=== PATIENT | male | born 1935 | race Caucasian/White ===

== ENCOUNTER 2019-12-23 11:12 | Outpatient (REF) | payer MEDICARE, SELFPAY ==
[2019-12-23 12:44] LABS: Cholesterol 160 mg/dL; HDL Cholesterol 63 mg/dL; LDL Cholesterol Calculated 74 mg/dl; Triglycerides 115 mg/dL
== END 2019-12-23 11:13 | disposition home or self-care (01) ==
LOC: HO.LAB 11:12
PROVIDERS: PCP Internal Medicine; Visit Provider Internal Medicine
DX: E78.5 Hyperlipidemia, unspecified (principal)
CPT/HCPCS: 80061

== ENCOUNTER 2020-02-14 15:14 | Emergency (ER) | payer MEDICARE, SELFPAY ==
[2020-02-14 15:27] VITALS: BP 132/56; PULSE 100; RESP 18; TEMP 37; O2SAT 98; BMI 21.7
--- NOTE | 2020-02-14 15:27 | XR_ITS ---
EXAMINATION: XR CHEST CLINICAL INFORMATION: Dizziness. COMPARISON: Chest x-rays of 08/08/2018 and multiple previous chest x-rays dated back to 08/29/2014. CT chest 05/12/2018. Selected images of the abdomen and pelvic CT of 08/08/2018. TECHNIQUE: Frontal view of the chest was obtained. FINDINGS: The patient is rotated to the left. Left lung volume loss with mediastinal shift to the left is a chronic stable finding. Mild chronic opacification is noted at the left lung base, likely related to pleural thickening. Multiple surgical clips are again in the left hilar region. No new airspace opacities are seen. No evidence of pulmonary edema or right pleural effusion. No pneumothorax. Cardiomediastinal silhouette is unchanged. Aortic arch calcifications. In the visualized upper abdomen bilateral nephrostomy tubes are partially seen. Healed left-sided rib fractures are redemonstrated. XR/XR chest 1V IMPRESSION: No convincing evidence of acute pulmonary process. Chronic stable findings of left lung volume loss and mediastinal shift to the left with mild pleural thickening in the left lower chest.
--- NOTE | 2020-02-14 15:27 | CT_ITS ---
EXAMINATION: CT HEAD WITHOUT CONTRAST CLINICAL INFORMATION: Dizziness COMPARISON: None TECHNIQUE: Contiguous axial imaging was performed from the skull base to vertex without intravenous administration of contrast. This CT examination was performed using dose optimization techniques as appropriate, variously including the following: *Automated exposure control *Adjustment of mA and/or kV according to patient size (this includes techniques or standardized protocols for targeted exams where dose is matched to indication/reason for exam; i.e. extremities or head) *Use of iterative reconstruction technique DLP: 736 mGy-cm FINDINGS: There is no evidence of acute intracranial hemorrhage or territorial infarction. No abnormal mass effect or midline shift is seen. Zapien to white matter differentiation is well preserved. No extra-axial fluid collections are identified. The lateral ventricles are symmetrical in size and configuration without enlargement. Mild periventricular hypodensity seen in both cerebral hemispheres suggestive of chronic small vessel ischemic changes. The osseous structures and soft tissues are normal. The mastoid air cells and visualized portions of the paranasal sinuses are well aerated. CT/CT head/brain wo con IMPRESSION: No acute intracranial process seen
--- NOTE | 2020-02-14 15:27 | ECG_ITS ---
Test Reason : DIZZINESS Blood Pressure : / mmHG Vent. Rate : 095 BPM Atrial Rate : 095 BPM P-R Int : 166 ms QRS Dur : 080 ms QT Int : 362 ms P-R-T Axes : 095 -14 -09 degrees QTc Int : 454 ms Normal sinus rhythm Moderate voltage criteria for LVH, may be normal variant Borderline ECG When compared with ECG of 20-AUG-2018 11:59, No significant change was found Referred By: Luca Tran Electronically Signed By:KATARZYNA JANE
[2020-02-14 16:07] LABS: Basophils Percent Auto 0.1 % (0-2); Eosinophils Absolute Auto 0.1 X10*3/uL (0.0-0.4); Eosinophils Percent Auto 0.7 % (0-4); Hematocrit 31.8 % (42-52); Hemoglobin 10.1 g/dl (14.0-18.0); Imm Gran Abs Auto 0.05 X10*3/uL (0.00-0.03); Imm Gran Pct Auto 0.6 % (0.0-0.4); Lymphocytes Absolute Auto 0.5 X10*3/uL (1.2-4.9); Lymphocytes Percent Auto 6.2 % (20-40); MANUAL DIFF FLAG SCAN; Mean Corpuscular HGB Conc 31.8 g/dl (31.0-36.0); Mean Corpuscular Hemoglobin 31.7 pg (27.0-33.0); Mean Corpuscular Volume 99.7 fL (80-98); Mean Platelet Volume 9.1 fL (9.4-12.4); Monocytes Absolute Auto 0.7 X10*3/uL (0.1-1.2); Monocytes Percent Auto 8.4 % (2-11); Neutrophils Absolute Auto 6.7 X10*3/uL (2.0-8.3); Platelet Count 194 X10*3/uL (160-400); Red Blood Count 3.19 X10*6/uL (4.60-5.80); Red Cell Distribution Width 16.7 % (11.0-16.0); SCAN SMEAR FLAG 1
[2020-02-14 16:29] LABS: SLIDE REVIEW VERIFIED
[2020-02-14 16:42] LABS: Troponin-I High Sensitivity 20.5 ng/L (<3.5-35.0)
[2020-02-14 16:56] VITALS: BP 133/55; PULSE 91; RESP 19; O2SAT 100
[2020-02-14 18:02] LABS: Prothrombin Time 11.8 SEC (10.8-13.0)
[2020-02-14 18:05] LABS: Partial Thromboplastin Time 32.4 SEC (24.1-38.0)
[2020-02-14 18:06] LABS: Influenza A PCR NEGATIVE (Negative); Influenza B PCR NEGATIVE (Negative); Resp Syncy Virus RNA Qual PCR NEGATIVE (Negative); SARS COV2 PCR INHOUSE NEGATIVE (Negative)
[2020-02-14 18:32] LABS: Anion Gap 13 (12-20); Blood Urea Nitrogen 24 mg/dL (9-16); Calcium 7.9 mg/dL (8.4-10.2); Carbon Dioxide 36 mmol/L (22-29); Chloride 93 mmol/L (96-108); Creatinine Clr Calc Pharmacy 13.7; Estimated Glomerular Filt Rate 17; Glucose Random 132 mg/dL (60-115); Potassium 3.9 mmol/l (3.3-5.1); Sodium 138 mmol/L (135-145)
--- NOTE | 2020-02-14 18:44 | ED_ITS ---
HPI - Dizziness General Chief Complaint: Dizziness Stated Complaint: dizziness Time Seen by Provider: 02/14/20 15:27 Source: EMS Mode of arrival: EMS History of Present Illness HPI Narrative: 84-year-old male with past medical history that is significant for lung CA status post lobectomy, bladder and renal CA status post bilateral nephrostomies since June 2017 with end-stage renal disease on hemodialysis Thursday being followed by by [facility], hypertension, hyperlipidemia, obstructive sleep apnea, gastroesophageal reflux disease, chronic back pain and depression who presents today after almost finishing his course of dialysis with 15 minutes/complaining of dizziness. States he has been having these symptoms for several months toward the end of the dialysis he started to get dizzy. He otherwise denies any fever chills. No back pain. No chest pain. No shortness of breath. states that as dizziness episode usually last for an hour and resolved spontaneously. He denies any recent illness. MD elicited complaint: dizziness Timing: gradual onset Severity: mild History of similar symptoms: Yes Exacerbating factors: other ( Dialysis) Relieving factors: nothing Associated symptoms: denies other symptoms Related Data Home Medications Medication Instructions Recorded Confirmed amlodipine 10 mg tablet 10 mg PO DAILY 01/13/20 01/13/20 docusate sodium 100 mg capsule 100 mg PO DAILY 01/13/20 01/13/20 metoprolol tartrate 50 mg tablet 50 mg PO DAILY 01/13/20 01/13/20 mirtazapine 15 mg tablet 15 mg PO DAILY 01/13/20 01/13/20 polyethylene glycol 3350 17 17 g PO DAILY 01/13/20 01/13/20 gram/dose oral powder vitamin B complex and vitamin C 1 cap PO DAILY 01/13/20 01/13/20 no.20-folic acid 1 mg capsule B-complex with vitamin C 1 tab PO DAILY 02/01/20 atorvastatin 20 mg tablet 20 mg PO DAILY 02/01/20 ergocalciferol (vitamin D2) 1,250 1,250 mcg PO Q2W cap 02/01/20 mcg (50,000 unit) capsule risperidone 0.25 mg tablet 0.25 mg PO BEDTIME 02/01/20 Previous Rx's Medication Instructions Recorded doxycycline hyclate 100 mg tablet 100 mg PO BID #14 tab 01/30/20 prednisone 20 mg tablet 20 mg PO .COMPLEX #18 tab 01/30/20 Allergies Allergy/AdvReac Type Severity Reaction Status Date / Time cephradine [From VELOSEF] Allergy Intermediate HIVES Verified 01/30/20 15:44 peach Allergy Mild HIVES Verified 01/30/20 15:44 cephalexin [Keflex] Allergy Unknown hives Verified 01/30/20 15:44 Sulfa (Sulfonamide Allergy Unknown vomiting Verified 01/30/20 15:44 Antibiotics) velosef Allergy Unknown itching Uncoded 01/30/20 15:44 Review of Systems Review of Systems: Constitutional: No Weight loss, No Fever, No Chills, No Night Sweats, No Fatigue, No Malaise ENT/Mouth: No Hearing loss, No Ear Pain, No Nasal Congestion, No Sinus Pain, No Hoarseness, No sore throat, No Rhinorrhea, No Swallowing Difficulty Eyes: No Eye Pain, No Swelling, No Redness, No Foreign Body, No Discharge, No Vision Changes Cardiovascular: No Chest Pain, No SOB, No Dyspnea on Exertion, No Orthopnea, No Edema, No Palpitations Respiratory: No Cough, No Sputum, No Wheezing, No Smoke Exposure, No Dyspnea Gastrointestinal: No Nausea, No Vomiting, No Diarrhea, No Constipation, No abdominal Pain, No Hematochezia, No Melena Genitourinary: no irregular bleeding, No Dysuria, No Urinary Frequency, No Hematuria, No Urinary Incontinence, No Urgency, No Flank Pain, No Urinary Flow Changes, No Hesitancy Musculoskeletal: No joint pain, No Myalgias, No Joint Swelling Skin: No Skin Lesions, No rash Neuro: No Weakness, No Numbness, No Paresthesias, No Loss of Consciousness, + Dizziness, No Headache Psych: No Anxiety/Panic, No Depression, No SI/HI/AH/VH, No Social Issues Heme/Lymph: No Bruising, No Bleeding,No Lymphadenopathy Endocrine: No Polyuria, No Polydipsia, No Temperature Intolerance Yes all other systems are reviewed and are negative PMFSH Past Medical History Surgical History History of bladder surgery History of inguinal hernia repair History of lumbar laminectomy Family History Family History Father Myocardial infarction Mother Hypertension Social History Social History Alcohol intake: never Smoking Status: Never smoker Smoked in Last 30 Days: No Use of substances other than those prescribed or required for medical reasons: No Advance Directives: No Advance Directives Information Provided: Yes Physical Exam Vital Signs: Vital Signs: Last Vital Signs Temp 99.4 F 02/14/20 19:32 Pulse 98 02/14/20 19:32 Resp 22 H 02/14/20 19:32 BP 141/43 H 02/14/20 19:32 Pulse Ox 100 02/14/20 19:32 Body Mass Index 21.7 Reviewed Const: General: cooperative and healthy appearing; No acute distress or intoxicated appearing Nutritional Appearance: average body habitus Orientation/consciousness: patient oriented x3 HENMT: Head: Yes normal to inspection Ears: hearing grossly normal bilaterally Eyes: General: appearance normal, both eyes and all related structures Visual Ozuna: normal visual ozuna by confrontation Neck: Neck: Yes normal visual inspection and No tender Thyroid: Thyroid normal Chest: Chest palpation & inspection: normal inspection of the chest Resp: Effort & Inspection: normal respiratory effort Auscultation: clear to auscultation bilaterally Cardio: Jugular venous distension: no JVD Rhythm: regular rhythm GI: Inspection: Yes normal to inspection Percussion: Yes normal to percussion Auscultation: normal bowel sounds : General: Yes no CVA tenderness Back/Spine/Pelvis: Back: no CVA tenderness Skin: General skin exam: no rashes or lesions noted Neuro: General: patient oriented x3 Extrem: Other: left upper extremity with dialysis fistula with positive bruit /thrill. No bleeding or signs of infection. Bilateral lower flank areas with nephrostomy tubes psych clean with dressing in place. No sign infection or severe tenderness palpation. General: Yes normal to inspection MDM - Dizziness MDM Narrative Medical decision making narrative: Hemodynamically stable. Orthostatics negative. head CT negative for bleed / mass. No evidence of focal ty rological findings. Sir troponin negative. EKG without acute ischemic changes. Question side effect of dialysis versus removing too much volume. 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 Langley. Has been eating and drinking here without a problem. Stable for discharge. Medical Records Attestation: I reviewed the patient's medical records. Lab Data Attestation: I reviewed the patient's lab results. Result diagrams: 02/14/20 15:53 02/14/20 18:02 Labs: Lab Results 02/14/20 02/14/20 02/14/20 Range/Units 15:53 15:53 15:54 WBC 8.0 (4.8-10.8) X10*3/uL RBC 3.19 L (4.60-5.80) X10*6/uL Hgb 10.1 L (14.0-18.0) g/dl Hct 31.8 L (42-52) % MCV 99.7 H (80-98) fL MCH 31.7 (27.0-33.0) pg MCHC 31.8 (31.0-36.0) g/dl RDW 16.7 H (11.0-16.0) % Plt Count 194 (160-400) X10*3/uL MPV 9.1 L (9.4-12.4) fL Immature Gran % (Auto) 0.6 H (0.0-0.4) % Neut % (Auto) 84.0 H (45-73) % Lymph % (Auto) 6.2 L (20-40) % [place] % (Auto) 8.4 (2-11) % Eos % (Auto) 0.7 (0-4) % Baso % (Auto) 0.1 (0-2) % Lymph # (Auto) 0.5 L (1.2-4.9) X10*3/uL [place] # (Auto) 0.7 (0.1-1.2) X10*3/uL Eos # (Auto) 0.1 (0.0-0.4) X10*3/uL Baso # (Auto) 0.0 (0.0-0.2) X10*3/uL Abs Immat Gran (auto) 0.05 H (0.00-0.03) X10*3/uL Absolute Neuts (auto) 6.7 (2.0-8.3) X10*3/uL Absolute Nucleated RBC 0.000 (0.0-0.012) X10*3/uL Nucleated RBC % (auto) 0.0 (0.0-0.2) /100WBC Smear Tech's Comments VERIFIED PT Cancelled INR Cancelled APTT Cancelled Sodium Cancelled Potassium Cancelled Chloride Cancelled Carbon Dioxide Cancelled Anion Gap Cancelled BUN Cancelled Creatinine Cancelled Estim Creat Clear Calc Cancelled Estimated GFR Cancelled Random Glucose Cancelled Calcium Cancelled Total Bilirubin Cancelled AST Cancelled ALT Cancelled Alkaline Phosphatase Cancelled Troponin I High Sens (<3.5-35.0) ng/L Total Protein Cancelled Albumin Cancelled Coronavirus (PCR) (Negative) Influenza Type A (PCR) (Negative) Influenza Type B (PCR) (Negative) RSV RNA Qual (PCR) (Negative) 02/14/20 02/14/20 02/14/20 Range/Units 15:54 15:54 17:10 WBC (4.8-10.8) X10*3/uL RBC (4.60-5.80) X10*6/uL Hgb (14.0-18.0) g/dl Hct (42-52) % MCV (80-98) fL MCH (27.0-33.0) pg MCHC (31.0-36.0) g/dl RDW (11.0-16.0) % Plt Count (160-400) X10*3/uL MPV (9.4-12.4) fL Immature Gran % (Auto) (0.0-0.4) % Neut % (Auto) (45-73) % Lymph % (Auto) (20-40) % [place] % (Auto) (2-11) % Eos % (Auto) (0-4) % Baso % (Auto) (0-2) % Lymph # (Auto) (1.2-4.9) X10*3/uL [place] # (Auto) (0.1-1.2) X10*3/uL Eos # (Auto) (0.0-0.4) X10*3/uL Baso # (Auto) (0.0-0.2) X10*3/uL Abs Immat Gran (auto) (0.00-0.03) X10*3/uL Absolute Neuts (auto) (2.0-8.3) X10*3/uL Absolute Nucleated RBC (0.0-0.012) X10*3/uL Nucleated RBC % (auto) (0.0-0.2) /100WBC Smear Tech's Comments PT Cancelled INR Cancelled APTT Cancelled Sodium Potassium Chloride Carbon Dioxide Anion Gap BUN Creatinine Estim Creat Clear Calc Estimated GFR Random Glucose Calcium Total Bilirubin AST ALT Alkaline Phosphatase Troponin I High Sens 20.5 (<3.5-35.0) ng/L Total Protein Albumin Coronavirus (PCR) NEGATIVE (Negative) Influenza Type A (PCR) NEGATIVE (Negative) Influenza Type B (PCR) NEGATIVE (Negative) RSV RNA Qual (PCR) NEGATIVE (Negative) 02/14/20 02/14/20 02/14/20 Range/Units 17:10 17:39 17:39 WBC (4.8-10.8) X10*3/uL RBC (4.60-5.80) X10*6/uL Hgb (14.0-18.0) g/dl Hct (42-52) % MCV (80-98) fL MCH (27.0-33.0) pg MCHC (31.0-36.0) g/dl RDW (11.0-16.0) % Plt Count (160-400) X10*3/uL MPV (9.4-12.4) fL Immature Gran % (Auto) (0.0-0.4) % Neut % (Auto) (45-73) % Lymph % (Auto) (20-40) % [place] % (Auto) (2-11) % Eos % (Auto) (0-4) % Baso % (Auto) (0-2) % Lymph # (Auto) (1.2-4.9) X10*3/uL [place] # (Auto) (0.1-1.2) X10*3/uL Eos # (Auto) (0.0-0.4) X10*3/uL Baso # (Auto) (0.0-0.2) X10*3/uL Abs Immat Gran (auto) (0.00-0.03) X10*3/uL Absolute Neuts (auto) (2.0-8.3) X10*3/uL Absolute Nucleated RBC (0.0-0.012) X10*3/uL Nucleated RBC % (auto) (0.0-0.2) /100WBC Smear Tech's Comments PT 11.8 INR 1.0 APTT 32.4 Sodium Cancelled Potassium Cancelled Chloride Cancelled Carbon Dioxide Cancelled Anion Gap Cancelled BUN Cancelled Creatinine Cancelled Estim Creat Clear Calc Cancelled Estimated GFR Cancelled Random Glucose Cancelled Calcium Cancelled Total Bilirubin Cancelled AST Cancelled ALT Cancelled Alkaline Phosphatase Cancelled Troponin I High Sens (<3.5-35.0) ng/L Total Protein Cancelled Albumin Cancelled Coronavirus (PCR) (Negative) Influenza Type A (PCR) (Negative) Influenza Type B (PCR) (Negative) RSV RNA Qual (PCR) (Negative) 02/14/20 02/14/20 Range/Units 18:02 19:27 WBC (4.8-10.8) X10*3/uL RBC (4.60-5.80) X10*6/uL Hgb (14.0-18.0) g/dl Hct (42-52) % MCV (80-98) fL MCH (27.0-33.0) pg MCHC (31.0-36.0) g/dl RDW (11.0-16.0) % Plt Count (160-400) X10*3/uL MPV (9.4-12.4) fL Immature Gran % (Auto) (0.0-0.4) % Neut % (Auto) (45-73) % Lymph % (Auto) (20-40) % [place] % (Auto) (2-11) % Eos % (Auto) (0-4) % Baso % (Auto) (0-2) % Lymph # (Auto) (1.2-4.9) X10*3/uL [place] # (Auto) (0.1-1.2) X10*3/uL Eos # (Auto) (0.0-0.4) X10*3/uL Baso # (Auto) (0.0-0.2) X10*3/uL Abs Immat Gran (auto) (0.00-0.03) X10*3/uL Absolute Neuts (auto) (2.0-8.3) X10*3/uL Absolute Nucleated RBC (0.0-0.012) X10*3/uL Nucleated RBC % (auto) (0.0-0.2) /100WBC Smear Tech's Comments PT INR APTT Sodium 138 Potassium 3.9 Chloride 93 L Carbon Dioxide 36 H Anion Gap 13 BUN 24 H Creatinine 3.41 H Estim Creat Clear Calc 13.7 Estimated GFR 17 Random Glucose 132 H Calcium 7.9 L Total Bilirubin AST ALT Alkaline Phosphatase Troponin I High Sens 20.3 (<3.5-35.0) ng/L Total Protein Albumin Coronavirus (PCR) (Negative) Influenza Type A (PCR) (Negative) Influenza Type B (PCR) (Negative) RSV RNA Qual (PCR) (Negative) Imaging Data Chest x-ray: Radiologist's impression: [address] [address] XRay Report Signed Patient: Aung Lozano EMR#: [id number] : 5Acct:[id number] Age/Sex: 84 / MADM Date: 02/14/20 Loc: .ED Attending Dr: Ordering Physician: Luca Tran NP Date of Service: 02/14/20 Procedure(s): XR chest 1V Accession Number(s): [id number] cc: Luca Tran NETWORK SYSTEMS OPERATOR~ EXAMINATION: XR CHEST CLINICAL INFORMATION: Dizziness. COMPARISON: Chest x-rays of 08/08/2018 and multiple previous chest x-rays dated back to 08/29/2014. CT chest 05/12/2018. Selected images of the abdomen and pelvic CT of 08/08/2018. TECHNIQUE: Frontal view of the chest was obtained. FINDINGS: The patient is rotated to the left. Left lung volume loss with mediastinal shift to the left is a chronic stable finding. Mild chronic opacification is noted at the left lung base, likely related to pleural thickening. Multiple surgical clips are again in the left hilar region. No new airspace opacities are seen. No evidence of pulmonary edema or right pleural effusion. No pneumothorax. Cardiomediastinal silhouette is unchanged. Aortic arch calcifications. In the visualized upper abdomen bilateral nephrostomy tubes are partially seen. Healed left-sided rib fractures are redemonstrated. XR/XR chest 1V IMPRESSION: No convincing evidence of acute pulmonary process. Chronic stable findings of left lung volume loss and mediastinal shift to the left with mild pleural thickening in the left lower chest. Dictated By:TED BRANHAM MD Signed By:<Electronically signed by TED BRANHAM MD in OV>02/14/20 1603 DD/ 1527 TD/TT: Special Client Bus Driver: LIZZIE CT scan - head: Radiologist's impression: [address] [address] [address] Scan Report Signed Patient: Aung Lozano EMR#: [id number] : 5Acct:[id number] Age/Sex: 84 / MADM Date: 02/14/20 Loc: HO.ED Attending Dr: Ordering Physician: Luca Tran NP Date of Service: 02/14/20 Procedure(s): CT head/brain wo con Accession Number(s): [id number] cc: Luca Tran NETWORK SYSTEMS OPERATOR~ EXAMINATION: CT HEAD WITHOUT CONTRAST CLINICAL INFORMATION: Dizziness COMPARISON: None TECHNIQUE: Contiguous axial imaging was performed from the skull base to vertex without intravenous administration of contrast. This CT examination was performed using dose optimization techniques as appropriate, variously including the following: *Automated exposure control *Adjustment of mA and/or kV according to patient size (this includes techniques or standardized protocols for targeted exams where dose is matched to indication/reason for exam; i.e. extremities or head) *Use of iterative reconstruction technique DLP: 736 mGy-cm FINDINGS: There is no evidence of acute intracranial hemorrhage or territorial infarction. No abnormal mass effect or midline shift is seen. Zapien to white matter differentiation is well preserved. No extra-axial fluid collections are identified. The lateral ventricles are symmetrical in size and configuration without enlargement. Mild periventricular hypodensity seen in both cerebral hemispheres suggestive of chronic small vessel ischemic changes. The osseous structures and soft tissues are normal. The mastoid air cells and visualized portions of the paranasal sinuses are well aerated. CT/CT head/brain wo con IMPRESSION: No acute intracranial process seen Dictated By:TARSHA CALDERON MD Signed By:<Electronically signed by TARSHA CALDERON MD in OV>02/14/20 1632 DD/ 1527 TD/TT: Special Client Bus Driver: JENNY ECG Data Interpretation: Normal sinus rhythm Rate 95 P are interval within normal limits No ST segment changes Discharge Plan Discharge Clinical Impression: Dizziness Patient Disposition: Home, Self-Care Instructions: Dizziness (ED) Prescriptions: No Action atorvastatin 20 mg tablet 20 mg PO DAILY RF: 0 B-complex with vitamin C Tablet 1 tab PO DAILY RF: 0 risperidone 0.25 mg tablet 0.25 mg PO BEDTIME RF: 0 ergocalciferol (vitamin D2) 1,250 mcg (50,000 unit) capsule 1,250 mcg PO Q2W RF: 0 B complex with C 20-folic acid 1 mg capsule 1 cap PO DAILY RF: 0 metoprolol tartrate 50 mg tablet 50 mg PO DAILY RF: 0 docusate sodium [Colace] 100 mg capsule 100 mg PO DAILY RF: 0 polyethylene glycol 3350 [Miralax] 17 gram/dose powder 17 g PO DAILY RF: 0 mirtazapine 15 mg tablet 15 mg PO DAILY RF: 0 amlodipine 10 mg tablet 10 mg PO DAILY RF: 0 prednisone 20 mg tablet 20 mg PO .COMPLEX Qty: 18 RF: 0 doxycycline hyclate 100 mg tablet 100 mg PO BID Qty: 14 RF: 0 Referrals: Syed Langley MD [Physician] - 2 days
[2020-02-14 19:32] VITALS: BP 141/43; PULSE 98; RESP 22; TEMP 37.4; O2SAT 100
[2020-02-14 20:14] LABS: Troponin-I High Sensitivity 20.3 ng/L (<3.5-35.0)
[2020-02-14] MEDS: oxyCODONE HCl Immed Release 5 MG TABLET PO (20:23)
== END 2020-02-14 21:17 | disposition home or self-care (01) ==
PROVIDERS: Nurse Practitioner Primary Care; Emergency Provider Internal Medicine
DX: R42 Dizziness and giddiness (principal); Z79.899 Other long term (current) drug therapy; Z20.828 Contact with and (suspected) exposure to other viral communicable diseases
CPT/HCPCS: 0241U; 36415; 70450; 71045; 80048; 80053; 84484; 85025; 85610; 85730; 93005; 99284

== ENCOUNTER 2021-01-17 10:15 | Outpatient (REF) | payer MEDICARE, SELFPAY ==
[2021-01-17 12:16] LABS: Alanine Aminotransferase 14 U/L (0-40); Albumin Level 3.8 g/dL (3.5-5.0); Alkaline Phosphatase 107 U/L (39-117); Anion Gap 18 (12-20); Aspartate Amino Transferase 13 U/L (5-37); Bilirubin Total 0.4 mg/dL (0.0-1.0); Blood Urea Nitrogen 45 mg/dL (9-16); Calcium 9.4 mg/dL (8.4-10.2); Carbon Dioxide 33 mmol/L (22-29); Chloride 96 mmol/L (96-108); Estimated Glomerular Filt Rate 7; Glucose Fasting 102 mg/dL (60-99); Potassium 4.7 mmol/L (3.3-5.1); Sodium 142 mmol/L (135-145); Total Protein 6.8 g/dL (6.5-8.0)
== END 2021-01-17 10:16 | disposition home or self-care (01) ==
LOC: HO.LAB 10:15
PROVIDERS: Visit Provider Nurse Practitioner Family
DX: Z13.1 Encounter for screening for diabetes mellitus (principal)
CPT/HCPCS: 36415; 80053

== ENCOUNTER 2021-03-08 06:53 | Outpatient (REF) | payer MEDICARE, SELFPAY ==
[2021-03-08 07:01] LABS: MANUAL DIFF FLAG NO
[2021-03-08 07:17] LABS: Basophils Percent Auto 0.1 % (0-2); Eosinophils Percent Auto 0.1 % (0-4); Hematocrit 27.8 % (42.0-52.0); Hemoglobin 8.8 g/dl (14.0-18.0); Imm Gran Abs Auto 0.12 X10*3/uL (0.00-0.03); Imm Gran Pct Auto 0.9 % (0.0-0.4); Lymphocytes Absolute Auto 0.6 X10*3/uL (1.2-4.9); Lymphocytes Percent Auto 4.3 % (20-40); Mean Corpuscular HGB Conc 31.7 g/dl (31.0-36.0); Mean Corpuscular Hemoglobin 31.8 pg (27.0-33.0); Mean Corpuscular Volume 100.4 fL (80.0-98.0); Monocytes Absolute Auto 0.7 X10*3/uL (0.1-1.2); Monocytes Percent Auto 5.8 % (2-11); Neutrophils Absolute Auto 11.3 x10*3/uL (2.0-8.3); Neutrophils Percent Auto 88.8 % (45-73); Platelet Count 291 X10*3/uL (160-400); Red Blood Count 2.77 X10*6/uL (4.60-5.80); Red Cell Distribution Width 18.3 % (11.0-16.0); White Blood Count 12.7 X10*3/uL (4.8-10.8)
[2021-03-08 07:36] LABS: Alanine Aminotransferase 17 U/L (0-40); Albumin Level 2.9 g/dL (3.5-5.0); Alkaline Phosphatase 111 U/L (39-117); Anion Gap 15 (12-20); Aspartate Amino Transferase 16 U/L (5-37); Bilirubin Total 0.6 mg/dL (0.0-1.0); Blood Urea Nitrogen 21 mg/dL (9-16); Calcium 8.2 mg/dL (8.4-10.2); Carbon Dioxide 29 mmol/L (22-29); Chloride 97 mmol/L (96-108); Estimated Glomerular Filt Rate 15; Glucose Fasting 80 mg/dL (60-99); Potassium 3.7 mmol/L (3.3-5.1); Sodium 137 mmol/L (135-145); Total Protein 5.4 g/dL (6.5-8.0)
[2021-03-08 07:43] LABS: Cholesterol 95 mg/dL; HDL Cholesterol 33 mg/dL; LDL Cholesterol Calculated 42 mg/dl; Triglycerides 100 mg/dL
== END 2021-03-08 06:54 | disposition home or self-care (01) ==
LOC: HO.MMNH1L 06:53
PROVIDERS: Internal Medicine; Visit Provider Family Medicine
DX: Z00.00 Encounter for general adult medical examination without abnormal findings (principal); N18.6 End stage renal disease
CPT/HCPCS: 36415; 80053; 80061; 85025

== ENCOUNTER 2021-03-28 14:27 | Inpatient (IN) | payer MEDICARE, SELFPAY ==
--- NOTE | ~2021-03-28 | CT_ITS ---
EXAMINATION: CT CHEST WITH CONTRAST CT ABDOMEN AND PELVIS WITH CONTRAST CLINICAL INFORMATION: Reason for Exam looking for primary tumor . COMPARISON: CT abdomen pelvis dated 08/08/[address] chest dated 05/12/2018 and 05/06/2018 TECHNIQUE: Multidetector volumetric imaging was performed from the thoracic inlet through the pubic symphysis following administration of intravenous contrast material. A total of 100 mL Omnipaque 300 was administered intravenously. Sagittal and coronal images were reformatted. This CT examination was performed using dose optimization techniques as appropriate, variously including the following: *Automated exposure control *Adjustment of mA and/or kV according to patient size (this includes techniques or standardized protocols for targeted exams where dose is matched to indication/reason for exam; i.e. extremities or head) *Use of iterative reconstruction technique DOSE: 2005 mGy-cm FINDINGS: -CHEST- LUNG: As seen on the prior study, the left lower lobe is surgically absent. There is collapse of the lingular segments of the left upper lobe, similar to prior. Numerous small pulmonary nodules are evident within the left upper lobe, measuring 5 to 7 mm in average diameter (image 213/17 of series 626. A is evident on image 250 series 17 anteriorly. Multiple smaller nodules are seen measuring between 2.5 mm in average diameter. Assessment of much of the remaining left upper lobe is limited by the degree of collapse, particularly at the lingula. There is mild dependent atelectasis in the right lower lobe medially. Right lower lobe otherwise appears clear. No significant right-sided pulmonary nodules. There is material within the left mainstem bronchus which may correspond to mucous secretions, though an endobronchial lesion is also on the differential. MEDIASTINUM: Heart and mediastinum are shifted into the left hemithorax due to the loss of volume at the left lung, due in part to prior lower lobectomy. The left lobe of the thyroid is absent. Right lobe is normal. No appreciable mediastinal adenopathy. Heart is normal in size with avascular calcifications of the coronary arteries and dense calcifications at the mitral annulus. Thoracic aorta is normal in caliber with associated calcific atherosclerosis. PERICARDIUM/PLEURA: There is a small to moderate-sized left pleural effusion with peripheral, loculated components. There is a thick pleural rind posteriorly. This corresponds to a complex effusion, though the density is relatively low. No pneumothorax. CHEST WALL/AXILLA: No axillary adenopathy. Mass along the right internal jugular vein is likely related to catheter placement. The tip of the right IJ venous catheter does not appear intraluminal. -ABDOMEN/PELVIS- LIVER, GALLBLADDER, BILIARY TREE: The liver is normal in size, shape, and attenuation. No focal hepatic lesion or biliary ductal dilatation is present. The gallbladder is borderline hydropic with no evidence of radiopaque gallstones, gallbladder wall thickening, or obvious pericholecystic inflammatory changes. PANCREAS: Normal; no mass or surrounding fluid. SPLEEN: Normal size. No focal lesion. ADRENAL GLANDS: Normal; no mass. KIDNEYS AND URETERS: Both kidneys are atrophic with cortical thinning. Nephrostomy tubes terminate in the renal pelvises bilaterally. Multiple subcentimeter hypoattenuating foci in both kidneys appear to correspond to cysts and are too small to characterize. No follow-up imaging recommendation. BLADDER: Thick-walled bladder is likely related to the nondistention. There is minimal surrounding fat stranding. GASTROINTESTINAL TRACT: Stomach, small bowel, and colon are normal in caliber. No bowel wall thickening or surrounding inflammatory changes. Appendix is normal. There is a moderate to large volume of stool in the rectum and distal sigmoid colon. Diverticulosis is evident in the descending and sigmoid colon. No evidence of acute diverticulitis. Intraperitoneal free fluid or free air. ABDOMINAL WALL: No significant hernia is appreciated. VASCULATURE: Abdominal aorta is normal in caliber. Calcific atherosclerotic disease is present in the abdominal aorta and it iliac and visceral branches. LYMPH NODES: No lymphadenopathy. . PELVIC VISCERA: The prostate gland is heterogeneous with central nodularity, possibly the result of benign prostatic hypertrophy. OSSEUS STRUCTURES: Bones are osteopenic. Prior ORIF of the proximal femoral fracture with 3 screws. No acute fractures are identified. No aggressive osseous lesions are appreciated. There is multilevel degenerative spondylosis in the thoracolumbar spine. CT/CT abdomen pelvis w con IMPRESSION: 1. Prior left lower lobectomy with material opacifying the left mainstem bronchus and multiple left upper lobe pulmonary nodules, concerning for local recurrence with local metastasis to the left upper lobe. Lingula is collapsed. Bronchoscopy is advisable for assessment of the material in the left mainstem bronchus. 2. Small to moderate-sized complex left pleural effusion. No adenopathy. 3. No acute abnormalities are identified in the abdomen and pelvis. 4. The tip of the right internal jugular catheter appears extraluminal. Recommend removal/replacement. 5. Moderate to large volume of stool in the rectum. 6. Bilateral nephrostomy tubes in place. This critical result was discussed by telephone with Dr. Smith on 03/28/2021 at 7:05 PM.
--- NOTE | ~2021-03-28 | CT_ITS ---
EXAMINATION: CT HEAD WITHOUT CONTRAST CLINICAL INFORMATION: Unresponsive COMPARISON: 02/14/2020 TECHNIQUE: Contiguous axial imaging was performed from the skull base to vertex without intravenous administration of contrast. This CT examination was performed using dose optimization techniques as appropriate, variously including the following: *Automated exposure control *Adjustment of mA and/or kV according to patient size (this includes techniques or standardized protocols for targeted exams where dose is matched to indication/reason for exam; i.e. extremities or head) *Use of iterative reconstruction technique DLP: 837 mGy-cm FINDINGS: There is no evidence of acute intracranial hemorrhage or territorial infarction. There are No abnormal mass effect or midline shift is seen. [place] to white matter differentiation is well preserved. No extra-axial fluid collections are identified. Patchy periventricular white matter changes consistent with sequela of microangiopathy and prominence of sulci and ventricles secondary to volume loss The ventricles are normal in size. There is no abnormal attenuation within the brain. There are new since previous examination masses in right parietal lobe measured 2.1 x 1.3 cm and surrounded by vasogenic edema but no mass effect, there is questionable edema with no obvious mass in the right frontal lobe, there is questionable mass in the left posterior parietal lobe measured 1.5 cm, there is left posterior parietal lobe edema. Possible small mass associated with edema seen in the left occipital lobe, right cerebellar peduncle, findings suggestive for metastasis. No evidence of intracranial hemorrhage. There is mucosal thickening of left maxillary sinus and left in the right sphenoidal sinus as well as complete opacification of the left frontal sinus due to chronic sinus disease and there is partial opacification of bilateral mastoids. CT/CT head/brain wo con IMPRESSION: Multiple brain masses most likely metastasis. CT scan with contrast or MRI recommended for follow-up and confirmation. Chronic sinus disease. This critical result was discussed with Dr. Anne Marie Smith at 4:50 PM on 03/28/2021 and it was ascertained that the content and urgency of the report was understood at the time of direct communication.
--- NOTE | ~2021-03-28 | CT_ITS ---
EXAMINATION: CT HEAD WITH CONTRAST CLINICAL INFORMATION: Multiple brain masses. COMPARISON: CT head from 03/28/2021 and 02/14/2020. TECHNIQUE: Contiguous axial imaging was performed from the skull base to vertex without intravenous administration of contrast. This CT examination was performed using dose optimization techniques as appropriate, variously including the following: *Automated exposure control. *Adjustment of mA and/or kV according to patient size (this includes techniques or standardized protocols for targeted exams where dose is matched to indication/reason for exam; i.e. extremities or head). *Use of iterative reconstruction technique. DLP: 857 mGy-cm FINDINGS: There are multiple peripherally enhancing cystic lesions scattered throughout the supratentorial and infratentorial structures. These lesions demonstrate relatively thin enhancing margins with relatively uniform central hypoattenuation. The largest lesion is located within the high right frontal lobe, measuring 2.4 x 1.8 x 1.7 cm. Additional lesions of varying sizes ranging from 2 cm to 0.3, noted is within the high right frontal lobe, the periventricular and lateral aspects of the right temporal lobe, the bilateral occipital lobes, the high left postcentral gyrus, the posterior left insula, and the inferior right cerebellar hemisphere. Moderate perilesional edema associated with these lesions. There is no evidence of acute intracranial hemorrhage or edematous territorial infarction. No demonstrated overt loss of rodney-white matter differentiation. Proportional prominence of the ventricles and sulcal spaces. No evidence for obstructive hydrocephalus. No abnormal mass effect or midline shift. No extra-axial fluid collections. No acute soft tissue or osseous abnormalities. Moderate bilateral mastoid effusions. CT/CT head/brain w con IMPRESSION: 1. Multiple peripherally enhancing cystic lesions scattered throughout the supratentorial and infratentorial structures. Multiple metastatic disease remains a consideration. However, the thin, relatively smooth enhancing margins of these lesions may indicate multiple cerebral abscesses. Recommend consideration of potential sources of infection. If clinically indicated, MRI may help further distinguish between these etiologies. 2. No evidence of acute intracranial hemorrhage or edematous territorial infarction.
--- NOTE | ~2021-03-28 | XR_ITS ---
EXAMINATION: XR CHEST CLINICAL INFORMATION: Status post dialysis COMPARISON: February 14, 2020 TECHNIQUE: AP portable view of the chest was obtained. FINDINGS: Patient is status post left lung surgery with loss of volume. There is mediastinal shift to the left. Right hemithorax appears unremarkable. No pneumothorax is seen. There is a large left pleural effusion present. Old healed left rib fractures present. Heart normal size. No evidence of pulmonary edema. XR/XR chest 1V IMPRESSION: Status post left lung surgery with large left pleural effusion which is significantly increased in size from study of February 14, 2020. No evidence of pulmonary edema.
[2021-03-28 14:34] VITALS: BP 103/50; PULSE 118; RESP 20; O2SAT 94; BMI 19.3
[2021-03-28 14:36] LABS: Glucose, Whole Blood 93 mg/dL (60-115)
--- NOTE | 2021-03-28 14:39 | ECG_ITS ---
Test Reason : unrespomsive Blood Pressure : / mmHG Vent. Rate : 118 BPM Atrial Rate : 118 BPM P-R Int : 150 ms QRS Dur : 074 ms QT Int : 344 ms P-R-T Axes : 102 -61 037 degrees QTc Int : 482 ms Sinus tachycardia Pulmonary disease pattern Left anterior fascicular block Nonspecific ST abnormality Abnormal ECG When compared with ECG of 14-FEB-2020 15:37, QRS axis Shifted left Nonspecific T wave abnormality has replaced inverted T waves in Inferior leads T wave amplitude has decreased in Lateral leads Referred By: Anne Marie Smith Electronically Signed By:Volodymyr Adan
--- NOTE | 2021-03-28 14:40 | ED.GENADULT ---
HPI - General Adult General Chief complaint: General Medical Stated complaint: UNRESPONSIVE Time Seen by Provider: 03/28/21 14:38 Source: patient and EMS Mode of arrival: EMS Limitations: altered mental status History of Present Illness HPI narrative: Patient comes to the emergency room from dialysis. According to EMS, this morning patient was taken to dialysis unresponsive. On arrival to the dialysis center, patient remained unresponsive, but decided to go ahead and do dialysis anyways. According to the dialysis staff, patient usually arrives alert and oriented x3, talking. After the dialysis was finished. The staff noticed that the patient remained unresponsive and therefore decided to call EMS to bring the patient to the hospital. On arrival to the dialysis center, EMS tried sternal rubbing the patient, patient did not wake up. On the way to the hospital, the EMT inserted an IO in the left tibia, patient started waking up. On arrival to the emergency room, patient is awake, nonverbal, altered. The staff at the dialysis facility reported that they spoke to the patient's , patient was at baseline last night. Therefore, last time the patient was well seen was over 15 hours ago. Also, per EMS, patient has been COVID positive for 2 weeks Related Data Home Medications Medication Instructions Recorded Confirmed metoprolol tartrate 50 mg tablet 50 mg PO DAILY 01/13/20 01/18/21 polyethylene glycol 3350 17 17 g PO DAILY 01/13/20 01/18/21 gram/dose oral powder (Miralax) vitamin B complex and vitamin C 1 cap PO DAILY 01/13/20 01/18/21 no.20-folic acid 1 mg capsule ergocalciferol (vitamin D2) 1,250 1,250 mcg PO Q2W cap 02/01/20 01/18/21 mcg (50,000 unit) capsule risperidone 0.25 mg tablet 0.25 mg PO BEDTIME 02/01/20 01/18/21 mirtazapine 45 mg tablet 22.5 mg PO BEDTIME 04/16/20 01/18/21 sevelamer carbonate 800 mg tablet 800 mg PO DAILY tab 07/16/20 01/18/21 lorazepam 0.5 mg tablet 0.5 mg PO DAILY PRN 10/17/20 01/18/21 oxycodone-acetaminophen 5 mg-325 1 tab PO Q6H PRN 10/17/20 01/18/21 mg tablet lactulose 10 gram/15 mL oral ml PO 01/18/21 01/18/21 solution Previous Rx's Medication Instructions Recorded atorvastatin 20 mg tablet 20 mg PO DAILY #90 tab 04/23/20 Allergies Allergy/AdvReac Type Severity Reaction Status Date / Time cephradine [From VELOSEF] Allergy Intermediate HIVES Verified 01/18/21 14:10 peach Allergy Mild HIVES Verified 01/18/21 14:10 cephalexin [Keflex] Allergy Unknown hives Verified 01/18/21 14:10 Sulfa (Sulfonamide Allergy Unknown vomiting Verified 01/18/21 14:10 Antibiotics) velosef Allergy Unknown itching Uncoded 10/17/20 15:32 Review of Systems Review of Systems: Yes Unobtainable due to mental status PMFSH Past Medical History Medical History Hyperlipidemia Hypertension Screening for diabetes mellitus Surgical History History of bladder surgery History of inguinal hernia repair History of lumbar laminectomy History of lung surgery Family History Family History Father Myocardial infarction Mother Hypertension Social History Social History Housing: House Alcohol intake: unknown Patient Tobacco Use Status: Former Tobacco user Tobacco use type: Cigarette e-Cigarette/Vaping Use: Never Used Second Hand Smoke Exposure: No Use of substances other than those prescribed or required for medical reasons: Unknown Advance Directives: No Advance Directives Information Provided: Yes service: No Current occupational status: retired Cognitive needs: No Hearing needs: No Vision needs: No Physical Exam Vital Signs: Vital Signs: Last Vital Signs Temp 97.5 F 03/28/21 18:04 Pulse 112 H 03/28/21 18:04 Resp 19 03/28/21 18:04 BP 133/65 03/28/21 18:04 Pulse Ox 100 03/28/21 18:04 BMI result Body Mass Index 19.3 Const: Other: Appearance: Alert. Altered, nonverbal Eyes: Pupils equal, round and reactive to light. ENT: Pharynx normal. Neck: Normal inspection. Neck supple. No lymph nodes noted. No crepitus CVS: Tachycardic, Pulses normal. Normal S1 and S2 Respiratory: No respiratory distress. Breath sounds normal. No Wheezing. No rales Abdomen: Soft and nontender. No rigidity. No distention. Skin: Skin warm and dry. Normal skin color. Normal skin turgor. Extremities: No lower extremity edema. No Lacerations. No Rash Neuro: Altered, unable to follow any commands, moves upper extremities Course Course Course Narrative: I discussed the CT findings with the patient's and the patient's daughter. At this time, they decided not to pursue aggressive treatment, to stop lab works, including a stopping dialysis. 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 I discussed the patient with Dr. Macias. Patient will be admitted to the hospitalist service. 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 Medical Decision Making Lab Data Result diagrams: 03/28/21 15:19 03/28/21 15:19 Labs: Lab Results 03/28/21 03/28/21 03/28/21 Range/Units 14:33 15:19 15:19 WBC 15.8 H (4.8-10.8) X10*3/uL RBC 2.70 L (4.60-5.80) X10*6/uL Hgb 8.2 L (14.0-18.0) g/dl Hct 26.4 L (42.0-52.0) % MCV 97.8 (80.0-98.0) fL MCH 30.4 (27.0-33.0) pg MCHC 31.1 (31.0-36.0) g/dl RDW 17.8 H (11.0-16.0) % Plt Count 239 (160-400) X10*3/uL MPV 10.2 (9.4-12.4) fL Immature Gran % (Auto) 1.5 H (0.0-0.4) % Neut % (Auto) 90.8 H (45-73) % Lymph % (Auto) 3.0 L (20-40) % [place] % (Auto) 4.4 (2-11) % Eos % (Auto) 0.1 (0-4) % Baso % (Auto) 0.2 (0-2) % Lymph # (Auto) 0.5 L (1.2-4.9) X10*3/uL [place] # (Auto) 0.7 (0.1-1.2) X10*3/uL Eos # (Auto) 0.0 (0.0-0.4) X10*3/uL Baso # (Auto) 0.0 (0.0-0.2) X10*3/uL Abs Immat Gran (auto) 0.23 H (0.00-0.03) X10*3/uL Absolute Neuts (auto) 14.4 H (2.0-8.3) x10*3/uL Absolute Nucleated RBC 0.000 (0.0-0.012) X10*3/uL Nucleated RBC % (auto) 0.0 (0.0-0.2) /100WBC Smear Tech's Comments VERIFIED PT (9.9-13.0) SEC INR (0.9-1.1) Sodium 142 (135-145) mmol/L Potassium 3.6 (3.3-5.1) mmol/L Chloride 98 (96-108) mmol/L Carbon Dioxide 28 (22-29) mmol/L Anion Gap 20 (12-20) BUN 11 D (9-16) mg/dL Creatinine 2.42 H (0.5-1.4) mg/dL Estim Creat Clear Calc 18.3 Estimated GFR 26 POC Glucose 93 (60-115) mg/dL Random Glucose 139 H D (60-115) mg/dL Lactic Acid (0.5-2.0) mmol/L Lactic Acid F/U @ 2Hr (0.5-2.0) mmol/L Calcium 8.2 L (8.4-10.2) mg/dL Total Bilirubin 0.6 (0.0-1.0) mg/dL Direct Bilirubin 0.2 (0.0-0.5) mg/dL AST 24 (5-37) U/L ALT 12 (0-40) U/L Alkaline Phosphatase 113 (39-117) U/L Ammonia (13-55) umol/L Troponin I High Sens (<3.5-35.0) ng/L Total Protein 6.0 L (6.5-8.0) g/dL Albumin 2.7 L (3.5-5.0) g/dL Lipase 185 H (8-78) U/L Urine Color Urine Appearance Urine pH (5.0-8.0) Ur Specific [place] (1.005-1.025) Urine Protein (NEG-TRACE) MG/DL Urine Glucose (UA) (NEG) MG/DL Urine Ketones (NEG) MG/DL Urine Blood (NEG) Urine Nitrite (NEG) Ur Leukocyte Esterase (NEG) Urine RBC (0) /HPF Urine WBC (0-4) /HPF Urine WBC Clumps Ur Squamous Epith Cells /LPF Amorphous Sediment /LPF Urine Bacteria /LPF Urine Mucus /LPF Urine Opiates Screen (Not Detect) Urine Fentanyl Screen (Not Detect) Ur Barbiturates Screen (Not Detect) Ur Phencyclidine Scrn (Not Detect) Ur Amphetamines Screen (Not Detect) U Benzodiazepines Scrn (Not Detect) Urine Cocaine Screen (Not Detect) U Marijuana (THC) Screen (Not Detect) COVID-19 (SELIVN) (Negative) COVID-19 Clin Com 03/28/21 03/28/21 03/28/21 Range/Units 15:19 15:19 15:19 WBC (4.8-10.8) X10*3/uL RBC (4.60-5.80) X10*6/uL Hgb (14.0-18.0) g/dl Hct (42.0-52.0) % MCV (80.0-98.0) fL MCH (27.0-33.0) pg MCHC (31.0-36.0) g/dl RDW (11.0-16.0) % Plt Count (160-400) X10*3/uL MPV (9.4-12.4) fL Immature Gran % (Auto) (0.0-0.4) % Neut % (Auto) (45-73) % Lymph % (Auto) (20-40) % [place] % (Auto) (2-11) % Eos % (Auto) (0-4) % Baso % (Auto) (0-2) % Lymph # (Auto) (1.2-4.9) X10*3/uL [place] # (Auto) (0.1-1.2) X10*3/uL Eos # (Auto) (0.0-0.4) X10*3/uL Baso # (Auto) (0.0-0.2) X10*3/uL Abs Immat Gran (auto) (0.00-0.03) X10*3/uL Absolute Neuts (auto) (2.0-8.3) x10*3/uL Absolute Nucleated RBC (0.0-0.012) X10*3/uL Nucleated RBC % (auto) (0.0-0.2) /100WBC Smear Tech's Comments PT 12.9 (9.9-13.0) SEC INR 1.1 (0.9-1.1) Sodium (135-145) mmol/L Potassium (3.3-5.1) mmol/L Chloride (96-108) mmol/L Carbon Dioxide (22-29) mmol/L Anion Gap (12-20) BUN (9-16) mg/dL Creatinine (0.5-1.4) mg/dL Estim Creat Clear Calc Estimated GFR POC Glucose (60-115) mg/dL Random Glucose (60-115) mg/dL Lactic Acid 2.1 H* (0.5-2.0) mmol/L Lactic Acid F/U @ 2Hr (0.5-2.0) mmol/L Calcium (8.4-10.2) mg/dL Total Bilirubin (0.0-1.0) mg/dL Direct Bilirubin (0.0-0.5) mg/dL AST (5-37) U/L ALT (0-40) U/L Alkaline Phosphatase (39-117) U/L Ammonia (13-55) umol/L Troponin I High Sens 28.2 (<3.5-35.0) ng/L Total Protein (6.5-8.0) g/dL Albumin (3.5-5.0) g/dL Lipase (8-78) U/L Urine Color Urine Appearance Urine pH (5.0-8.0) Ur Specific [place] (1.005-1.025) Urine Protein (NEG-TRACE) MG/DL Urine Glucose (UA) (NEG) MG/DL Urine Ketones (NEG) MG/DL Urine Blood (NEG) Urine Nitrite (NEG) Ur Leukocyte Esterase (NEG) Urine RBC (0) /HPF Urine WBC (0-4) /HPF Urine WBC Clumps Ur Squamous Epith Cells /LPF Amorphous Sediment /LPF Urine Bacteria /LPF Urine Mucus /LPF Urine Opiates Screen (Not Detect) Urine Fentanyl Screen (Not Detect) Ur Barbiturates Screen (Not Detect) Ur Phencyclidine Scrn (Not Detect) Ur Amphetamines Screen (Not Detect) U Benzodiazepines Scrn (Not Detect) Urine Cocaine Screen (Not Detect) U Marijuana (THC) Screen (Not Detect) COVID-19 (SELVIN) (Negative) COVID-19 Clin Com 03/28/21 03/28/21 03/28/21 Range/Units 15:36 16:14 16:14 WBC (4.8-10.8) X10*3/uL RBC (4.60-5.80) X10*6/uL Hgb (14.0-18.0) g/dl Hct (42.0-52.0) % MCV (80.0-98.0) fL MCH (27.0-33.0) pg MCHC (31.0-36.0) g/dl RDW (11.0-16.0) % Plt Count (160-400) X10*3/uL MPV (9.4-12.4) fL Immature Gran % (Auto) (0.0-0.4) % Neut % (Auto) (45-73) % Lymph % (Auto) (20-40) % [place] % (Auto) (2-11) % Eos % (Auto) (0-4) % Baso % (Auto) (0-2) % Lymph # (Auto) (1.2-4.9) X10*3/uL [place] # (Auto) (0.1-1.2) X10*3/uL Eos # (Auto) (0.0-0.4) X10*3/uL Baso # (Auto) (0.0-0.2) X10*3/uL Abs Immat Gran (auto) (0.00-0.03) X10*3/uL Absolute Neuts (auto) (2.0-8.3) x10*3/uL Absolute Nucleated RBC (0.0-0.012) X10*3/uL Nucleated RBC % (auto) (0.0-0.2) /100WBC Smear Tech's Comments PT (9.9-13.0) SEC INR (0.9-1.1) Sodium (135-145) mmol/L Potassium (3.3-5.1) mmol/L Chloride (96-108) mmol/L Carbon Dioxide (22-29) mmol/L Anion Gap (12-20) BUN (9-16) mg/dL Creatinine (0.5-1.4) mg/dL Estim Creat Clear Calc Estimated GFR POC Glucose (60-115) mg/dL Random Glucose (60-115) mg/dL Lactic Acid (0.5-2.0) mmol/L Lactic Acid F/U @ 2Hr (0.5-2.0) mmol/L Calcium (8.4-10.2) mg/dL Total Bilirubin (0.0-1.0) mg/dL Direct Bilirubin (0.0-0.5) mg/dL AST (5-37) U/L ALT (0-40) U/L Alkaline Phosphatase (39-117) U/L Ammonia 23 (13-55) umol/L Troponin I High Sens (<3.5-35.0) ng/L Total Protein (6.5-8.0) g/dL Albumin (3.5-5.0) g/dL Lipase (8-78) U/L Urine Color DK YELLOW Urine Appearance CLOUDY Urine pH 8.5 H (5.0-8.0) Ur Specific [place] 1.015 (1.005-1.025) Urine Protein 2+ H (NEG-TRACE) MG/DL Urine Glucose (UA) NEG (NEG) MG/DL Urine Ketones NEG (NEG) MG/DL Urine Blood 3+ H (NEG) Urine Nitrite NEG (NEG) Ur Leukocyte Esterase 3+ H (NEG) Urine RBC TNTC H (0) /HPF Urine WBC TNTC H (0-4) /HPF Urine WBC Clumps NOTED Ur Squamous Epith Cells TRACE /LPF Amorphous Sediment 1+ /LPF Urine Bacteria 1+ /LPF Urine Mucus TRACE /LPF Urine Opiates Screen (Not Detect) Urine Fentanyl Screen (Not Detect) Ur Barbiturates Screen (Not Detect) Ur Phencyclidine Scrn (Not Detect) Ur Amphetamines Screen (Not Detect) U Benzodiazepines Scrn (Not Detect) Urine Cocaine Screen (Not Detect) U Marijuana (THC) Screen (Not Detect) COVID-19 (SELVIN) Positive A (Negative) COVID-19 Clin Com See Note 03/28/21 03/28/21 Range/Units 16:14 18:29 WBC (4.8-10.8) X10*3/uL RBC (4.60-5.80) X10*6/uL Hgb (14.0-18.0) g/dl Hct (42.0-52.0) % MCV (80.0-98.0) fL MCH (27.0-33.0) pg MCHC (31.0-36.0) g/dl RDW (11.0-16.0) % Plt Count (160-400) X10*3/uL MPV (9.4-12.4) fL Immature Gran % (Auto) (0.0-0.4) % Neut % (Auto) (45-73) % Lymph % (Auto) (20-40) % [place] % (Auto) (2-11) % Eos % (Auto) (0-4) % Baso % (Auto) (0-2) % Lymph # (Auto) (1.2-4.9) X10*3/uL [place] # (Auto) (0.1-1.2) X10*3/uL Eos # (Auto) (0.0-0.4) X10*3/uL Baso # (Auto) (0.0-0.2) X10*3/uL Abs Immat Gran (auto) (0.00-0.03) X10*3/uL Absolute Neuts (auto) (2.0-8.3) x10*3/uL Absolute Nucleated RBC (0.0-0.012) X10*3/uL Nucleated RBC % (auto) (0.0-0.2) /100WBC Smear Tech's Comments PT (9.9-13.0) SEC INR (0.9-1.1) Sodium (135-145) mmol/L Potassium (3.3-5.1) mmol/L Chloride (96-108) mmol/L Carbon Dioxide (22-29) mmol/L Anion Gap (12-20) BUN (9-16) mg/dL Creatinine (0.5-1.4) mg/dL Estim Creat Clear Calc Estimated GFR POC Glucose (60-115) mg/dL Random Glucose (60-115) mg/dL Lactic Acid (0.5-2.0) mmol/L Lactic Acid F/U @ 2Hr 2.3 H* (0.5-2.0) mmol/L Calcium (8.4-10.2) mg/dL Total Bilirubin (0.0-1.0) mg/dL Direct Bilirubin (0.0-0.5) mg/dL AST (5-37) U/L ALT (0-40) U/L Alkaline Phosphatase (39-117) U/L Ammonia (13-55) umol/L Troponin I High Sens (<3.5-35.0) ng/L Total Protein (6.5-8.0) g/dL Albumin (3.5-5.0) g/dL Lipase (8-78) U/L Urine Color Urine Appearance Urine pH (5.0-8.0) Ur Specific [place] (1.005-1.025) Urine Protein (NEG-TRACE) MG/DL Urine Glucose (UA) (NEG) MG/DL Urine Ketones (NEG) MG/DL Urine Blood (NEG) Urine Nitrite (NEG) Ur Leukocyte Esterase (NEG) Urine RBC (0) /HPF Urine WBC (0-4) /HPF Urine WBC Clumps Ur Squamous Epith Cells /LPF Amorphous Sediment /LPF Urine Bacteria /LPF Urine Mucus /LPF Urine Opiates Screen Not Detected (Not Detect) Urine Fentanyl Screen Not Detected (Not Detect) Ur Barbiturates Screen Not Detected (Not Detect) Ur Phencyclidine Scrn Not Detected (Not Detect) Ur Amphetamines Screen Not Detected (Not Detect) U Benzodiazepines Scrn Not Detected (Not Detect) Urine Cocaine Screen Not Detected (Not Detect) U Marijuana (THC) Screen Not Detected (Not Detect) COVID-19 (SELVIN) (Negative) COVID-19 Clin Com Discharge Plan Discharge Clinical Impression: Brain metastasis, 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 Patient Disposition: Admitted As Inpatient Prescriptions: No Action risperidone 0.25 mg tablet 0.25 mg PO BEDTIME RF: 0 ergocalciferol (vitamin D2) 1,250 mcg (50,000 unit) capsule 1,250 mcg PO Q2W RF: 0 atorvastatin 20 mg tablet 20 mg PO DAILY Qty: 90 RF: 8 sevelamer carbonate 800 mg tablet 800 mg PO DAILY RF: 0 lorazepam 0.5 mg tablet 0.5 mg PO DAILY PRNRF: 0 oxycodone-acetaminophen 5-325 mg tablet 1 tab PO Q6H PRNRF: 0 B complex with C 20-folic acid 1 mg capsule 1 cap PO DAILY RF: 0 metoprolol tartrate 50 mg tablet 50 mg PO DAILY RF: 0 polyethylene glycol 3350 [Miralax] 17 gram/dose powder 17 g PO DAILY RF: 0 mirtazapine 45 mg tablet 22.5 mg PO BEDTIME RF: 0 lactulose 10 gram/15 mL solution PO RF: 0
[2021-03-28 15:26] LABS: Basophils Percent Auto 0.2 % (0-2); Eosinophils Percent Auto 0.1 % (0-4); Hematocrit 26.4 % (42.0-52.0); Hemoglobin 8.2 g/dl (14.0-18.0); Imm Gran Abs Auto 0.23 X10*3/uL (0.00-0.03); Imm Gran Pct Auto 1.5 % (0.0-0.4); Lymphocytes Absolute Auto 0.5 X10*3/uL (1.2-4.9); MANUAL DIFF FLAG SCAN; Mean Corpuscular HGB Conc 31.1 g/dl (31.0-36.0); Mean Corpuscular Hemoglobin 30.4 pg (27.0-33.0); Mean Corpuscular Volume 97.8 fL (80.0-98.0); Mean Platelet Volume 10.2 fL (9.4-12.4); Monocytes Absolute Auto 0.7 X10*3/uL (0.1-1.2); Monocytes Percent Auto 4.4 % (2-11); Neutrophils Absolute Auto 14.4 x10*3/uL (2.0-8.3); Neutrophils Percent Auto 90.8 % (45-73); Platelet Count 239 X10*3/uL (160-400); Red Cell Distribution Width 17.8 % (11.0-16.0); SCAN SMEAR FLAG 1; White Blood Count 15.8 X10*3/uL (4.8-10.8)
[2021-03-28 15:34] LABS: INTERNATIONAL NORM RATIO 1.1 (0.9-1.1); Prothrombin Time 12.9 SEC (9.9-13.0)
[2021-03-28 15:44] LABS: Alanine Aminotransferase 12 U/L (0-40); Albumin Level 2.7 g/dL (3.5-5.0); Alkaline Phosphatase 113 U/L (39-117); Anion Gap 20 (12-20); Aspartate Amino Transferase 24 U/L (5-37); Bilirubin Direct 0.2 mg/dL (0.0-0.5); Bilirubin Total 0.6 mg/dL (0.0-1.0); Blood Urea Nitrogen 11 mg/dL (9-16); Calcium 8.2 mg/dL (8.4-10.2); Carbon Dioxide 28 mmol/L (22-29); Chloride 98 mmol/L (96-108); Creatinine Clr Calc Pharmacy 18.3; Estimated Glomerular Filt Rate 26; Glucose Random 139 mg/dL (60-115); Lactic Acid 2.1 mmol/L (0.5-2.0); Lipase 185 U/L (8-78); Potassium 3.6 mmol/L (3.3-5.1); Sodium 142 mmol/L (135-145)
[2021-03-28 15:47] LABS: Troponin-I High Sensitivity 28.2 ng/L (<3.5-35.0)
[2021-03-28 15:56] LABS: Ammonia 23 umol/L (13-55)
[2021-03-28 16:00] VITALS: BP 86/39; PULSE 110; RESP 23; TEMP 36.6; O2SAT 95
[2021-03-28] MEDS: 0.9 % Sodium Chloride 1,000 ML 500 ML IVCONT (16:00)
[2021-03-28 16:01] LABS: SLIDE REVIEW VERIFIED
[2021-03-28 16:19] VITALS: BP 123/63; PULSE 138; RESP 26; TEMP 36.4; O2SAT 97
[2021-03-28 16:21] LABS: Appearance Urine CLOUDY; Color Urine DK YELLOW; Glucose Urine UA NEG (NEG); Leukocyte Esterase Urine 3+ (NEG); Nitrite Urine NEG (NEG); PH 8.5 (5.0-8.0); Specific Gravity - Urine 1.015 (1.005-1.025); UACC Culture Trigger YES; Urine Blood 3+ (NEG); Urine Ketones NEG (NEG); Urine Protein 2+ MG/DL (NEG-TRACE)
--- NOTE | 2021-03-28 16:27 | PC.NURSE ---
Late entry: verbal order by md Smith given to obtain IV access in feet. 18g R foot, 20g left ankle.
[2021-03-28 16:34] LABS: COVID-19 Test Positive (Negative); IDNOW Serial# 9DD0AD1C
[2021-03-28 16:38] LABS: Amorphous Sediment Urine 1+ /LPF; Bacteria Urine 1+ /LPF; Mucus Urine TRACE /LPF; RBC Urine TNTC /HPF (0); Squamous Epithelial Cell Urine TRACE /LPF; WBC Clumps Urine NOTED; WBC Urine TNTC /HPF (0-4)
[2021-03-28 16:41] LABS: Amphetamine Screen Urine Not Detected (Not Detect); Barbiturates, Urine Not Detected (Not Detect); Benzodiazepines Screen Urine Not Detected (Not Detect); Cannabinoid Screen Urine Not Detected (Not Detect); Cocaine Screen Urine Not Detected (Not Detect); Fentanyl, urine Not Detected (Not Detect); Opiate Screen Urine Not Detected (Not Detect); Phencyclidine Screen Urine Not Detected (Not Detect)
[2021-03-28] MEDS: dexAMETHasone sod phosphate 10 MG/ML VIAL IVPUSH (17:07)
--- NOTE | 2021-03-28 17:18 | PC.NURSE ---
Pt to be scanned without contrast due to abnormal labs. MD lee given permission.
[2021-03-28 17:23] LABS: Reflex Lactate? Lactic Acid Added
--- NOTE | 2021-03-28 17:29 | PC.NURSE ---
phlebotomy contacted for repeat lactic.
--- NOTE | 2021-03-28 17:30 | PC.NURSE ---
anastacia from [facility] will come back and draw pt.
[2021-03-28 18:04] VITALS: BP 133/65; PULSE 112; RESP 19; TEMP 36.4; O2SAT 100
[2021-03-28] MEDS: iohexoL 350 MG/ML 100 ML INFUS..BTL IV (18:23)
[2021-03-28 18:58] LABS: ~Lactic Acid-LAB USE ONLY 2.3 mmol/L (0.5-2.0)
--- NOTE | 2021-03-28 19:59 | P.HPHOSP_ITS ---
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 Per family patient was responsive yesterday and was talking today patient became acutely altered, not responding to verbal commands or tactile stimuli; subsequently patient went to the dialysis - if not finishing dialysis patient was not responding well; subsequently sent to the ER for further evaluation. Per ER team patient is alert and awake but not responding to the commands; CT head showed brain metastasis with concerns for abscesses; given poor prognosis ER team had in the discussion with the family who mentioned that patient does not want to go for any aggressive measures and decided to make him comfort measures only. Admitted for further management /hospice placement PMFSH Medical History Hyperlipidemia Hypertension Screening for diabetes mellitus Family History Father Myocardial infarction Mother Hypertension Pertinent family history: as above Surgical History History of bladder surgery History of inguinal hernia repair History of lumbar laminectomy History of lung surgery Social History Housing: House Alcohol intake: unknown Patient Tobacco Use Status: Former Tobacco user Tobacco use type: Cigarette e-Cigarette/Vaping Use: Never Used Second Hand Smoke Exposure: No Use of substances other than those prescribed or required for medical reasons: Unknown Advance Directives: No Advance Directives Information Provided: Yes service: No Current occupational status: retired Cognitive needs: No Hearing needs: No Vision needs: No Meds Allergies Allergy/AdvReac Type Severity Reaction Status Date / Time cephradine [From Allergy Intermediate HIVES Verified 01/18/21 14:10 VELOSEF] peach Allergy Mild HIVES Verified 01/18/21 14:10 cephalexin [Keflex] Allergy Unknown hives Verified 01/18/21 14:10 Sulfa (Sulfonamide Allergy Unknown vomiting Verified 01/18/21 14:10 Antibiotics) velosef Allergy Unknown itching Uncoded 10/17/20 15:32 Home Medications Medication Instructions Recorded Confirmed Last Taken Type metoprolol 50 mg PO DAILY 01/13/20 01/18/21 Unknown History tartrate 50 mg tablet polyethylene 17 g PO DAILY 01/13/20 01/18/21 Unknown History glycol 3350 17 gram/dose oral powder (Miralax) vitamin B complex 1 cap PO DAILY 01/13/20 01/18/21 Unknown History and vitamin C no.20-folic acid 1 mg capsule ergocalciferol 1,250 mcg PO Q2W 02/01/20 01/18/21 Unknown History (vitamin D2) cap 1,250 mcg (50,000 unit) capsule risperidone 0.25 0.25 mg PO 02/01/20 01/18/21 Unknown History mg tablet BEDTIME mirtazapine 45 mg 22.5 mg PO 04/16/20 01/18/21 Unknown History tablet BEDTIME sevelamer 800 mg PO DAILY 07/16/20 01/18/21 Unknown History carbonate 800 mg tab tablet lorazepam 0.5 mg 0.5 mg PO DAILY 10/17/20 01/18/21 Unknown History tablet PRN oxycodone-acetami 1 tab PO Q6H PRN 10/17/20 01/18/21 Unknown History nophen 5 mg-325 mg tablet lactulose 10 ml PO 01/18/21 01/18/21 Unknown History gram/15 mL oral solution Physical Exam Verdana 4l Vital Signs and Narrative: Verdana 4d Verdana 4d Vital Signs: Verdana 4d Verdana 4Bd Last Vital Signs Verdana 4d Openstack Developer New 4d Openstack Developer New 4d Temp 97.5 F 03/28/21 18:04 Openstack Developer New 4d Pulse 112 H 03/28/21 18:04 Celia DowNew 4d Resp 19 03/28/21 18:04 BP 133/65 03/28/21 18:04 Pulse Ox 100 03/28/21 18:04 BMI result Body Mass Index 19.3 patient awake Lying in the bed comfortably On supplemental oxygen Breathing comfortably Patient does not respond to verbal commands Results Labs CBC and Chem 7: 03/28/21 15:19 03/28/21 15:19 Labs: Laboratory Results - last 24 hr 03/28/21 03/28/21 03/28/21 14:33 15:19 15:19 MCV 97.8 MCH 30.4 MCHC 31.1 RDW 17.8 H Plt Count 239 MPV 10.2 Immature Gran % (Auto) 1.5 H Neut % (Auto) 90.8 H Lymph % (Auto) 3.0 L [place] % (Auto) 4.4 Eos % (Auto) 0.1 Baso % (Auto) 0.2 Lymph # (Auto) 0.5 L [place] # (Auto) 0.7 Eos # (Auto) 0.0 Baso # (Auto) 0.0 Abs Immat Gran (auto) 0.23 H Absolute Neuts (auto) 14.4 H Absolute Nucleated RBC 0.000 Nucleated RBC % (auto) 0.0 Smear Tech's Comments VERIFIED PT INR Anion Gap 20 Estim Creat Clear Calc 18.3 Estimated GFR 26 POC Glucose 93 Random Glucose 139 H D Lactic Acid Lactic Acid F/U @ 2Hr Calcium 8.2 L Total Bilirubin 0.6 Direct Bilirubin 0.2 AST 24 ALT 12 Alkaline Phosphatase 113 Ammonia Troponin I High Sens Total Protein 6.0 L Albumin 2.7 L Lipase 185 H Urine Color Urine Appearance Urine pH Ur Specific [place] Urine Protein Urine Glucose (UA) Urine Ketones Urine Blood Urine Nitrite Ur Leukocyte Esterase Urine RBC Urine WBC Urine WBC Clumps Ur Squamous Epith Cells Amorphous Sediment Urine Bacteria Urine Mucus Urine Opiates Screen Urine Fentanyl Screen Ur Barbiturates Screen Ur Phencyclidine Scrn Ur Amphetamines Screen U Benzodiazepines Scrn Urine Cocaine Screen U Marijuana (THC) Screen COVID-19 (SELVIN) COVID-19 Clin Com 03/28/21 03/28/21 03/28/21 15:19 15:19 15:19 MCV MCH MCHC RDW Plt Count MPV Immature Gran % (Auto) Neut % (Auto) Lymph % (Auto) [place] % (Auto) Eos % (Auto) Baso % (Auto) Lymph # (Auto) [place] # (Auto) Eos # (Auto) Baso # (Auto) Abs Immat Gran (auto) Absolute Neuts (auto) Absolute Nucleated RBC Nucleated RBC % (auto) Smear Tech's Comments PT 12.9 INR 1.1 Anion Gap Estim Creat Clear Calc Estimated GFR POC Glucose Random Glucose Lactic Acid 2.1 H* Lactic Acid F/U @ 2Hr Calcium Total Bilirubin Direct Bilirubin AST ALT Alkaline Phosphatase Ammonia Troponin I High Sens 28.2 Total Protein Albumin Lipase Urine Color Urine Appearance Urine pH Ur Specific [place] Urine Protein Urine Glucose (UA) Urine Ketones Urine Blood Urine Nitrite Ur Leukocyte Esterase Urine RBC Urine WBC Urine WBC Clumps Ur Squamous Epith Cells Amorphous Sediment Urine Bacteria Urine Mucus Urine Opiates Screen Urine Fentanyl Screen Ur Barbiturates Screen Ur Phencyclidine Scrn Ur Amphetamines Screen U Benzodiazepines Scrn Urine Cocaine Screen U Marijuana (THC) Screen COVID-19 (SELVIN) COVID-19 Clin Com 03/28/21 03/28/21 03/28/21 15:36 16:14 16:14 MCV MCH MCHC RDW Plt Count MPV Immature Gran % (Auto) Neut % (Auto) Lymph % (Auto) [place] % (Auto) Eos % (Auto) Baso % (Auto) Lymph # (Auto) [place] # (Auto) Eos # (Auto) Baso # (Auto) Abs Immat Gran (auto) Absolute Neuts (auto) Absolute Nucleated RBC Nucleated RBC % (auto) Smear Tech's Comments PT INR Anion Gap Estim Creat Clear Calc Estimated GFR POC Glucose Random Glucose Lactic Acid Lactic Acid F/U @ 2Hr Calcium Total Bilirubin Direct Bilirubin AST ALT Alkaline Phosphatase Ammonia 23 Troponin I High Sens Total Protein Albumin Lipase Urine Color DK YELLOW Urine Appearance CLOUDY Urine pH 8.5 H Ur Specific [place] 1.015 Urine Protein 2+ H Urine Glucose (UA) NEG Urine Ketones NEG Urine Blood 3+ H Urine Nitrite NEG Ur Leukocyte Esterase 3+ H Urine RBC TNTC H Urine WBC TNTC H Urine WBC Clumps NOTED Ur Squamous Epith Cells TRACE Amorphous Sediment 1+ Urine Bacteria 1+ Urine Mucus TRACE Urine Opiates Screen Urine Fentanyl Screen Ur Barbiturates Screen Ur Phencyclidine Scrn Ur Amphetamines Screen U Benzodiazepines Scrn Urine Cocaine Screen U Marijuana (THC) Screen COVID-19 (SELVIN) Positive A COVID-19 Clin Com See Note 03/28/21 03/28/21 16:14 18:29 MCV MCH MCHC RDW Plt Count MPV Immature Gran % (Auto) Neut % (Auto) Lymph % (Auto) [place] % (Auto) Eos % (Auto) Baso % (Auto) Lymph # (Auto) [place] # (Auto) Eos # (Auto) Baso # (Auto) Abs Immat Gran (auto) Absolute Neuts (auto) Absolute Nucleated RBC Nucleated RBC % (auto) Smear Tech's Comments PT INR Anion Gap Estim Creat Clear Calc Estimated GFR POC Glucose Random Glucose Lactic Acid Lactic Acid F/U @ 2Hr 2.3 H* Calcium Total Bilirubin Direct Bilirubin AST ALT Alkaline Phosphatase Ammonia Troponin I High Sens Total Protein Albumin Lipase Urine Color Urine Appearance Urine pH Ur Specific [place] Urine Protein Urine Glucose (UA) Urine Ketones Urine Blood Urine Nitrite Ur Leukocyte Esterase Urine RBC Urine WBC Urine WBC Clumps Ur Squamous Epith Cells Amorphous Sediment Urine Bacteria Urine Mucus Urine Opiates Screen Not Detected Urine Fentanyl Screen Not Detected Ur Barbiturates Screen Not Detected Ur Phencyclidine Scrn Not Detected Ur Amphetamines Screen Not Detected U Benzodiazepines Scrn Not Detected Urine Cocaine Screen Not Detected U Marijuana (THC) Screen Not Detected COVID-19 (SELVIN) COVID-19 Clin Com Imaging Radiologist's Impressions: Impressions Chest X-Ray 03/28/21 15:35 IMPRESSION: Status post left lung surgery with large left pleural effusion which is significantly increased in size from study of February 14, 2020. No evidence of pulmonary edema. Head CT 03/28/21 15:36 IMPRESSION: Multiple brain masses most likely metastasis. CT scan with contrast or MRI recommended for follow-up and confirmation. Chronic sinus disease. This critical result was discussed with Dr. Anne Marie Smith at 4:50 PM on 03/28/2021 and it was ascertained that the content and urgency of the report was understood at the time of direct communication. Abdomen/Pelvis CT 03/28/21 18:30 IMPRESSION: 1. Prior left lower lobectomy with material opacifying the left mainstem bronchus and multiple left upper lobe pulmonary nodules, concerning for local recurrence with local metastasis to the left upper lobe. Lingula is collapsed. Bronchoscopy is advisable for assessment of the material in the left mainstem bronchus. 2. Small to moderate-sized complex left pleural effusion. No adenopathy. 3. No acute abnormalities are identified in the abdomen and pelvis. 4. The tip of the right internal jugular catheter appears extraluminal. Recommend removal/replacement. 5. Moderate to large volume of stool in the rectum. 6. Bilateral nephrostomy tubes in place. This critical result was discussed by telephone with Dr. Smith on 03/28/2021 at 7:[address] 03/28/21 18:30 IMPRESSION: 1. Multiple peripherally enhancing cystic lesions scattered throughout the supratentorial and infratentorial structures. Multiple metastatic disease remains a consideration. However, the thin, relatively smooth enhancing margins of these lesions may indicate multiple cerebral abscesses. Recommend consideration of potential sources of infection. If clinically indicated, MRI may help further distinguish between these etiologies. 2. No evidence of acute intracranial hemorrhage or edematous territorial infarction. Chest CT 03/28/21 18:32 IMPRESSION: 1. Prior left lower lobectomy with material opacifying the left mainstem bronchus and multiple left upper lobe pulmonary nodules, concerning for local recurrence with local metastasis to the left upper lobe. Lingula is collapsed. Bronchoscopy is advisable for assessment of the material in the left mainstem bronchus. 2. Small to moderate-sized complex left pleural effusion. No adenopathy. 3. No acute abnormalities are identified in the abdomen and pelvis. 4. The tip of the right internal jugular catheter appears extraluminal. Recommend removal/replacement. 5. Moderate to large volume of stool in the rectum. 6. Bilateral nephrostomy tubes in place. This critical result was discussed by telephone with Dr. Smith on 03/28/2021 at 7:05 PM. 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 noted to have brain metastasis/abscess - given for prognosis patient was made comfort measures only and admitted for further management/hospice placement. Comfort measures only: Morphine p.r.n. for pain Ativan p.r.n. for anxiety Supplemental oxygen p.r.n. Scopolamine patch COVID positive: Patient has been COVID positive for past 2 weeks as per the report. Isolation precautions. Quality Stroke Does the patient have a stroke diagnosis?: No VTE Prior VTE?: No VTE Risk Level:: Medical - low VTE Device Contraindication: Treatment Not Indicated VTE Drug Contraindication: Treatment Not Indicated
--- NOTE | 2021-03-28 20:31 | PHA.MEDREC ---
Pharmacy Consult ? Medication Reconciliation Pharmacy has completed the medication reconciliation.
[2021-03-28 20:33] LABS: Reflex Lactate? 2 Y
[2021-03-28 21:02] LABS: ~Lactic Acid-LAB USE ONLY 1.6 mmol/L (0.5-2.0)
[2021-03-28] MEDS: LORazepam 2 MG/ML VIAL 1 MG IVPUSH (21:10)
[2021-03-28] MEDS: Scopolamine 1.5 MG PATCH.TD.3 EAR-BEHIND (21:47)
[2021-03-28] MEDS: Morphine Sulfate 4 MG/ML CARTRIDGE 1 MG IVPUSH (21:48)
[2021-03-28 22:14] VITALS: BP 128/103; PULSE 106; RESP 24; TEMP 36.3; O2SAT 100
[2021-03-29] VITALS (7 sets, daily range): BP systolic 145–155; BP diastolic 59–73; PULSE 97–105; RESP 16–20; O2SAT 98–100
--- NOTE | 2021-03-29 00:21 | PC.NURSE ---
Delayed entry- assumed care of pt at 1900. Per MD Smith, goals of care discussion occurred w/ family who agreed to CT TECHNICIAN. Family was briefly at bedside to see pt, updated on status and POC. Pt sleeping, wakes to touch, not answering questions or following commands. Awaiting inpt bed assignment
[2021-03-29] MEDS: LORazepam 2 MG/ML VIAL 1 MG IVPUSH (08:35)
[2021-03-29] MEDS: 0.9 % Sodium Chloride Flush 3 ML SYRINGE IVFLUSH (08:36)
--- NOTE | 2021-03-29 12:45 | MHC.CM.PN ---
MEGHAN CALLED PTS /HCP, DEIRDRE [phone] WHO REPORTS THE PT WAS AT [facility]. SHE REPORTS THE PLAN WOULD BE FOR HIM TO RETURN BUT SHE DOES NOT THINK HE IS READY TODAY. PER HER REQUEST, MEGHAN ASKED THE MD TO CONTACT HER. ONCE SHE SPOKE TO THE MD, SHE REPORTED BEING AGREEABLE TO THE DC PT WILL DC BACK TO [facility] AT 1400 HOURS TODAY. HE WILL REQUIRE BLS TRANSPORT. MD WILL ASSIST WITH COMPLETION OF A MOLST PRIOR TO HIS DC. PT DOES HAVE A HCP ON FILE
--- NOTE | 2021-03-29 12:59 | PM.DS ---
DS: Providers Provider Date of Service: 03/29/21 Date of admission: 03/28/21 19:57 Primary care physician: Unknown Physician DS: Diagnosis Discharge Diagnosis (1) Comfort measures only status: Status: Acute DS: Summary Hospital Course Hospital Course: HPI from the admission H&P: 85-year-old male with a past medical history of hypertension, hyperlipidemia,? 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 Per family patient was responsive yesterday and was talking today patient became acutely altered, not responding to verbal commands or tactile stimuli; subsequently patient went to the dialysis - if not finishing dialysis patient was not responding well; subsequently sent to the ER for further evaluation.? Per ER team patient is alert and awake but not responding to the commands; CT head showed brain metastasis with concerns for abscesses; given poor prognosis ER team had in the discussion with the family who mentioned that patient does not want to go for any aggressive measures and decided to make him comfort measures only.? Admitted for further management /hospice placement Hospital Course: Patient was admitted comfort care. Treated with ativan/morphine PRN. He will be transferred back to SNF on hospice/comfort care. MOLST form completed with on the telephone. Time Spent with Patient Time attestation: Total time spent providing and/or coordinating discharge services: Discharge coordination time: Less than 30 minutes Quality: Stroke Does the patient have a stroke diagnosis?: No Physical Exam Vital Signs: Vital Signs: Last Vital Signs Temp 97.4 F 03/28/21 22:14 Pulse 102 H 03/29/21 08:26 Resp 20 03/29/21 12:52 BP 145/59 H 03/29/21 06:01 Pulse Ox 100 03/29/21 12:52 BMI result Body Mass Index 19.3 Const: Other: minimally responsive on morning rounds, does not open eyes no distress DS: Data Data Completed and Pending Labs on day of discharge: Laboratory Results - last 24 hr 03/28/21 03/28/21 03/28/21 14:33 15:19 15:19 WBC 15.8 H RBC 2.70 L Hgb 8.2 L Hct 26.4 L MCV 97.8 MCH 30.4 MCHC 31.1 RDW 17.8 H Plt Count 239 MPV 10.2 Immature Gran % (Auto) 1.5 H Neut % (Auto) 90.8 H Lymph % (Auto) 3.0 L [place] % (Auto) 4.4 Eos % (Auto) 0.1 Baso % (Auto) 0.2 Lymph # (Auto) 0.5 L [place] # (Auto) 0.7 Eos # (Auto) 0.0 Baso # (Auto) 0.0 Abs Immat Gran (auto) 0.23 H Absolute Neuts (auto) 14.4 H Absolute Nucleated RBC 0.000 Nucleated RBC % (auto) 0.0 Smear Tech's Comments VERIFIED PT INR Sodium 142 Potassium 3.6 Chloride 98 Carbon Dioxide 28 Anion Gap 20 BUN 11 D Creatinine 2.42 H Estim Creat Clear Calc 18.3 Estimated GFR 26 POC Glucose 93 Random Glucose 139 H D Lactic Acid Lactic Acid F/U @ 2Hr Lactic Acid F/U @ 4Hr Calcium 8.2 L Total Bilirubin 0.6 Direct Bilirubin 0.2 AST 24 ALT 12 Alkaline Phosphatase 113 Ammonia Troponin I High Sens Total Protein 6.0 L Albumin 2.7 L Lipase 185 H Urine Color Urine Appearance Urine pH Ur Specific [place] Urine Protein Urine Glucose (UA) Urine Ketones Urine Blood Urine Nitrite Ur Leukocyte Esterase Urine RBC Urine WBC Urine WBC Clumps Ur Squamous Epith Cells Amorphous Sediment Urine Bacteria Urine Mucus Urine Opiates Screen Urine Fentanyl Screen Ur Barbiturates Screen Ur Phencyclidine Scrn Ur Amphetamines Screen U Benzodiazepines Scrn Urine Cocaine Screen U Marijuana (THC) Screen COVID-19 (SELVIN) COVID-19 Clin Com 03/28/21 03/28/21 03/28/21 15:19 15:19 15:19 WBC RBC Hgb Hct MCV MCH MCHC RDW Plt Count MPV Immature Gran % (Auto) Neut % (Auto) Lymph % (Auto) [place] % (Auto) Eos % (Auto) Baso % (Auto) Lymph # (Auto) [place] # (Auto) Eos # (Auto) Baso # (Auto) Abs Immat Gran (auto) Absolute Neuts (auto) Absolute Nucleated RBC Nucleated RBC % (auto) Smear Tech's Comments PT 12.9 INR 1.1 Sodium Potassium Chloride Carbon Dioxide Anion Gap BUN Creatinine Estim Creat Clear Calc Estimated GFR POC Glucose Random Glucose Lactic Acid 2.1 H* Lactic Acid F/U @ 2Hr Lactic Acid F/U @ 4Hr Calcium Total Bilirubin Direct Bilirubin AST ALT Alkaline Phosphatase Ammonia Troponin I High Sens 28.2 Total Protein Albumin Lipase Urine Color Urine Appearance Urine pH Ur Specific [place] Urine Protein Urine Glucose (UA) Urine Ketones Urine Blood Urine Nitrite Ur Leukocyte Esterase Urine RBC Urine WBC Urine WBC Clumps Ur Squamous Epith Cells Amorphous Sediment Urine Bacteria Urine Mucus Urine Opiates Screen Urine Fentanyl Screen Ur Barbiturates Screen Ur Phencyclidine Scrn Ur Amphetamines Screen U Benzodiazepines Scrn Urine Cocaine Screen U Marijuana (THC) Screen COVID-19 (SELVIN) COVID-19 [place] Com 03/28/21 03/28/21 03/28/21 15:36 16:14 16:14 WBC RBC Hgb Hct MCV MCH MCHC RDW Plt Count MPV Immature Gran % (Auto) Neut % (Auto) Lymph % (Auto) [place] % (Auto) Eos % (Auto) Baso % (Auto) Lymph # (Auto) [place] # (Auto) Eos # (Auto) Baso # (Auto) Abs Immat Gran (auto) Absolute Neuts (auto) Absolute Nucleated RBC Nucleated RBC % (auto) Smear Tech's Comments PT INR Sodium Potassium Chloride Carbon Dioxide Anion Gap BUN Creatinine Estim Creat Clear Calc Estimated GFR POC Glucose Random Glucose Lactic Acid Lactic Acid F/U @ 2Hr Lactic Acid F/U @ 4Hr Calcium Total Bilirubin Direct Bilirubin AST ALT Alkaline Phosphatase Ammonia 23 Troponin I High Sens Total Protein Albumin Lipase Urine Color DK YELLOW Urine Appearance CLOUDY Urine pH 8.5 H Ur Specific [place] 1.015 Urine Protein 2+ H Urine Glucose (UA) NEG Urine Ketones NEG Urine Blood 3+ H Urine Nitrite NEG Ur Leukocyte Esterase 3+ H Urine RBC TNTC H Urine WBC TNTC H Urine WBC Clumps NOTED Ur Squamous Epith Cells TRACE Amorphous Sediment 1+ Urine Bacteria 1+ Urine Mucus TRACE Urine Opiates Screen Urine Fentanyl Screen Ur Barbiturates Screen Ur Phencyclidine Scrn Ur Amphetamines Screen U Benzodiazepines Scrn Urine Cocaine Screen U Marijuana (THC) Screen COVID-19 (SELVIN) Positive A COVID-19 [place] Com See Note 03/28/21 03/28/21 03/28/21 16:14 18:29 20:46 WBC RBC Hgb Hct MCV MCH MCHC RDW Plt Count MPV Immature Gran % (Auto) Neut % (Auto) Lymph % (Auto) [place] % (Auto) Eos % (Auto) Baso % (Auto) Lymph # (Auto) [place] # (Auto) Eos # (Auto) Baso # (Auto) Abs Immat Gran (auto) Absolute Neuts (auto) Absolute Nucleated RBC Nucleated RBC % (auto) Smear Tech's Comments PT INR Sodium Potassium Chloride Carbon Dioxide Anion Gap BUN Creatinine Estim Creat Clear Calc Estimated GFR POC Glucose Random Glucose Lactic Acid Lactic Acid F/U @ 2Hr 2.3 H* Lactic Acid F/U @ 4Hr 1.6 Calcium Total Bilirubin Direct Bilirubin AST ALT Alkaline Phosphatase Ammonia Troponin I High Sens Total Protein Albumin Lipase Urine Color Urine Appearance Urine pH Ur Specific [place] Urine Protein Urine Glucose (UA) Urine Ketones Urine Blood Urine Nitrite Ur Leukocyte Esterase Urine RBC Urine WBC Urine WBC Clumps Ur Squamous Epith Cells Amorphous Sediment Urine Bacteria Urine Mucus Urine Opiates Screen Not Detected Urine Fentanyl Screen Not Detected Ur Barbiturates Screen Not Detected Ur Phencyclidine Scrn Not Detected Ur Amphetamines Screen Not Detected U Benzodiazepines Scrn Not Detected Urine Cocaine Screen Not Detected U Marijuana (THC) Screen Not Detected COVID-19 (SELVIN) COVID-19 Clin Com Preliminary micro results at discharge 03/28/21 15:18 Blood Culture - Preliminary Blood - Venous Prelim: GPC Gram Stain only 03/28/21 16:14 Urine Culture - Preliminary Urine Other - Nephrostomy No growth to date. Discharge Plan Discharge Patient Disposition: Hospice - Medical Facility Discharge Diagnosis: suspected metastatic cancer Referrals: Marek Cabrera [Outside] - 1 Week Physician,Nancy Smith [Primary Care Provider] - 1 Week Discharge Medications: Discontinued risperidone 0.25 mg tablet 0.25 mg PO BEDTIME RF: 0 atorvastatin 20 mg tablet 20 mg PO DAILY Qty: 90 RF: 8 metoprolol succinate 50 mg tablet extended release 24 hr 1 tab PO DAILY RF: 0 Nephro-Brittny 0.8 mg tablet 1 tab PO DAILY RF: 0 lorazepam 0.5 mg tablet 0.5 mg PO DAILY PRN (Reason: Anxiety) RF: 0 oxycodone-acetaminophen 5-325 mg tablet 1 tab PO Q6H PRN (Reason: Pain (Scale Score 4-6)) RF: 0 polyethylene glycol 3350 [Miralax] 17 gram/dose powder 17 g PO DAILY PRN (Reason: Constipation) RF: 0 mirtazapine 45 mg tablet 22.5 mg PO BEDTIME RF: 0 lactulose 10 gram/15 mL solution 15 ml PO BID RF: 0 Discharge Orders: Discharge Order (Routine); Ordered 03/29/21 Ordered By: Behzad Trotter Diet: other 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
== END 2021-03-29 13:48 | disposition hospice, inpatient (51) | DRG 951 ==
LOC: HO.ED 20:01 → HO.EDOVER 20:22
PROVIDERS: Admitting Provider Hospitalist; Emergency Provider Emergency Medicine; PCP Internal Medicine; Visit Provider Physician Assistant Medical
DX: Z51.5 Encounter for palliative care (principal); U07.1 COVID-19; N18.6 End stage renal disease; C34.90 Malignant neoplasm of unspecified part of unspecified bronchus or lung; C79.31 Secondary malignant neoplasm of brain; I12.0 Hypertensive chronic kidney disease with stage 5 chronic kidney disease or end stage renal disease; Z99.2 Dependence on renal dialysis; Z87.891 Personal history of nicotine dependence; Z88.2 Allergy status to sulfonamides; Z79.899 Other long term (current) drug therapy
CPT/HCPCS: 36415; 70450; 70460; 71045; 71260; 74177; 80048; 80053; 80076; 80307; 81001; 82140; 82947; 83605; 83690; 84484; 85025; 85027; 85610; 87040; 87086; 87147; 87205; 87635; 93005; 99285; J1100; J2060; J2270; Q9967